=== PATIENT | male | born 1965 | race Caucasian/White ===

== ENCOUNTER 2018-12-29 18:26 | Emergency (ER) | payer BC, OTHER ==
[~2018-12-29] VITALS: Ht 190.5 cm; Wt 80.7 kg
[~2018-12-29 18:26] MED LIST: ALEVE PO; SYNTHROID137 MCG PO; ZANTAC PO
--- OUTSIDE RECORDS SUMMARY | 2018-12-29 18:30 | XMS REPORT ---
Author Author [facility] Address Unknown Phone Unavailable Care Team Providers Care Pediatric Physician Name Role Phone Unavailable Unavailable Payers Payer Name Policy Type Policy Number Effective Date Expiration Date Problems This patient has no known problems. Allergies, Adverse Reactions, Alerts Allergy Name Allergy Type Status Severity Reaction(s) Onset Date Inactive Date Treating Clinician Comments iodine DA Active U 2018-06-12 00:00:00 No Known Allergies DA Active U 2011-11-07 00:00:00 Medications This patient has no known medications. Results Test Description Test Time Test Comments Text Results Atomic Results Result Comments LIPOMA 2018-06-17 13:40:00 RUN DATE: 06/17/18 [employer] PAGE 1 RUN TIME: 1340 Specimen Inquiry RUN USER: INTERFACE PATIENT: JOAQUÍN WORRELL LOC: NEL U #: [id number] AGE/SX: 53/M ROOM: RE06/16/18REG DR: Anand Hill MD : 69 BED: DIS: STATUS: [facility] TLOC: SPEC #: [id number] RECD: 06/16/18 STATUS: [facility] #: [id number] [place]: 06/16/[address] [facility] [address]: Anand Hill MD ENTERED: 06/16/18 SP TYPE: LIPOMA OTHR DR: Escobar Burns MD ORDERED: GROSS COPIES [place]: [place] [address] [place] [address] [email or web address] Anand Hill MD [address] [place] [address] PROCEDURES: GROSS (06/17/18-114) TISSUES: INGUINAL REGION, NOS - LEFT LIPOMA CLINICAL HISTORY COLLECTION DATE: 06/16/18 LEFT INGUINAL HERNIA FINAL DIAGNOSIS Inguinal region, left lipoma, herniorrhaphy: MATURE ADIPOSE TISSUE WITH NO ATYPICAL FEATURES COMPATIBLE WITH CORD LIPOMA NEGATIVE FOR MALIGNANCY RRB/sm D 73745 MACROSCOPIC The specimen is received in formalin, labeled with the patient's name, identified as "lipoma", and consists of 3.2 x 3.0 x 1.5 cm francisco-yellow, lobulated soft tissue. Sectioning reveals francisco-yellow soft cut surface. No areas of hemorrhage or necrosis are identified. Starch Treating Assistant sections are submitted in a single cassette. CONTINUED ON NEXT PAGE RUN DATE: 06/17/18 [employer] PAGE 2 RUN TIME: 1340 Specimen Inquiry RUN USER: INTERFACE SPEC #: [id number] PATIENT: JOAQUÍN WORRELL #[id number] (Continued) MACROSCOPIC (Continued) GROSS PERFORMED AT [facility] [address] [place] [address], [place] [address] (p)[phone] MICROSCOPIC All of the stains, including any controls performed, stain appropriately. MICROSCOPIC PERFORMED AT [facility] [address] [place] [address] [phone])[phone] PERFORMING SITE Diagnosis performed at: [facility] [address] [place] [address], [place] [address] Signed SIGNATURE ON FILE Ruddy Vidal 06/17/18 1340 END OF REPORT CBC W/AUTO DIFF 2018-06-12 17:14:00 WHITE BLOOD CELL (test code=WBC) 5.0 K/mm3 4.5-12.5 RED BLOOD CELL (test code=RBC) 5.19 mill/mm3 4.0-5.8 HEMOGLOBIN (test code=HGB) 15.3 gram/dL 13.0-17.5 HEMATOCRIT (test code=HCT) 47.5 % 42.0-52.0 MEAN CELL VOLUME (test code=MCV) 91.5 fL 80-98 MEAN CELL HGB (test code=MCH) 29.5 picogram 27.0-33.0 MEAN CELL HGB CONCETRATION (test code=MCHC) 32.2 gram/dL 33.0-36.0 RED CELL DISTRIBUTION WIDTH (test code=RDW) 13.7 % 11.6-16.2 RED CELL DISTRIBUTION WIDTH SD (test code=RDW-SD) 46.5 fL 37.0-51.0 PLATELET COUNT (test code=PLT) 231 K/mm3 150-450 MEAN PLATELET VOLUME (test code=MPV) 10.9 fL 6.7-11.0 NEUTROPHIL % (test code=NT%) 45.5 % 39.0-69.0 IMMATURE GRANULOCYTE % (test code=IG%) 0.2 % 0.0-5.0 LYMPHOCYTE % (test code=LY%) 33.9 % 25.0-55.0 MONOCYTE % (test code=MO%) 12.7 % 0.0-10.0 EOSINOPHIL % (test code=EO%) 6.9 % 0.0-5.0 BASOPHIL % (test code=BA%) 0.8 % 0.0-1.0 NUCLEATED RBC % (test code=NRBC%) 0.0 % 0-0 NEUTROPHIL # (test code=NT#) 2.29 K/mm3 1.8-7.7 IMMATURE GRANULOCYTE # (test code=IG#) 0.01 x10 3/uL 0-0.03 LYMPHOCYTE # (test code=LY#) 1.71 K/mm3 1.0-5.0 MONOCYTE # (test code=MO#) 0.64 K/mm3 0-0.8 EOSINOPHIL # (test code=EO#) 0.35 K/mm3 0.0-0.5 BASOPHIL # (test code=BA#) 0.04 K/mm3 0.0-0.2 NUCLEATED RBC # (test code=NRBC#) 0.00 K/mm3 0.0-0.1 CBC W/AUTO [id number] 17:11:00* Test Item Value Reference Range Comments WHITE BLOOD CELL (test code=WBC) K/mm3 4.5-12.5 RED BLOOD CELL (test code=RBC) mill/mm3 4.0-5.8 HEMOGLOBIN (test code=HGB) 15.3 gram/dL 13.0-17.5 HEMATOCRIT (test code=HCT) 47.5 % 42.0-52.0 MEAN CELL VOLUME (test code=MCV) fL 80-98 MEAN CELL HGB (test code=MCH) picogram 27.0-33.0 MEAN CELL HGB CONCETRATION (test code=MCHC) gram/dL 33.0-36.0 RED CELL DISTRIBUTION WIDTH (test code=RDW) % 11.6-16.2 RED CELL DISTRIBUTION WIDTH SD (test code=RDW-SD) fL 37.0-51.0 PLATELET COUNT (test code=PLT) K/mm3 150-450 MEAN PLATELET VOLUME (test code=MPV) fL 6.7-11.0 NEUTROPHIL % (test code=NT%) % 39.0-69.0 IMMATURE GRANULOCYTE % (test code=IG%) % 0.0-5.0 LYMPHOCYTE % (test code=LY%) % 25.0-55.0 MONOCYTE % (test code=MO%) % 0.0-10.0 EOSINOPHIL % (test code=EO%) % 0.0-5.0 BASOPHIL % (test code=BA%) % 0.0-1.0 NEUTROPHIL # (test code=NT#) K/mm3 1.8-7.7 LYMPHOCYTE # (test code=LY#) K/mm3 1.0-5.0 MONOCYTE # (test code=MO#) K/mm3 0-0.8 EOSINOPHIL # (test code=EO#) K/mm3 0.0-0.5 BASOPHIL # (test code=BA#) K/mm3 0.0-0.2
--- OUTSIDE RECORDS SUMMARY | 2018-12-29 18:30 | XMS REPORT | Encounter Summary ---
Author Organization Unknown Address [address] [place] [address] Phone [phone] Care Team Providers Care Ingot Stripper Name Role Phone Dr. Escobar Bernstein 3 [phone] Everett Roberts MD 107 [phone] Reason for Visit Annual physical - male with PSA; hernia Instructions 1. Adult health examination CBC w/ auto diff CMP, serum or plasma TSH, serum or plasma lipid panel, serum urinalysis, dipstick 2. Immunization Fluzone Quad 2017-(PF) 60 mcg(15 mcgx4)/0.5 mL intramuscular syringe 3. Body mass index 20-24 - normal 4. Cigarette smoker stopping smoking: care instructions 5. Screening for malignant neoplasm of prostate PSA, serum or plasma 6. Loose stool C diff toxin B, stool ova + parasites, unspecified specimen 7. Abdominal mass CT, abdomen + pelvis, w/ contrast - please schedule & contact our patient. thank you 8. Alopecia dermatology referral 9. Chronic obstructive lung disease Discussion Note: None recorded. Plan of Care Reminders Provider Appointments None recorded. Lab CBC W/ Auto Diff 05/12/2018 [facility] CMP, Serum or Plasma 05/12/2018 [facility] TSH, Serum or Plasma 05/12/2018 [facility] Lipid Panel, Serum 05/12/2018 [facility] Urinalysis, Dipstick 05/12/2018 [facility] [place] PSA, Serum or Plasma 05/12/2018 [facility] C Diff Toxin B, Stool 05/12/2018 [facility] Ova + Parasites, Unspecified Specimen 05/12/2018 [facility] Referral Dermatology Referral 05/12/2018 Rossana Edward MD Procedures None recorded. Surgeries None recorded. Imaging CT, Abdomen + Pelvis, W/ Contrast 05/12/2018 [facility] Medications Name Start Date Aleve 2 TABS A COUPLE TIMES A WEEK PRN 08/08/2017 fluticasone 50 mcg/actuation nasal spray,suspension [place] 1 spray twice a day by intranasal route as directed for 10 days. Synthroid 200 mcg tablet TAKE 1 TABLET BY MOUTH ONCE DAILY Medications Administered None recorded. Vitals Height Weight BMI Blood Pressure 6 ft 3 in 189.8 lbs 23.7 kg/m2 118/72 mm[Hg] Lab Results None recorded. Allergies Code Code System Name Reaction Severity Status Onset 5933 RxNorm Iodine Active NKDA Problems Name Status Onset Date Source Hypothyroidism Active 07/10/2016 Body Mass Index 25-29 - Overweight Active 07/10/2016 Tobacco User Active 07/10/2016 Constipation Active 07/10/2016 Disorder of Hair AND/OR Hair Follicle Active 07/10/2016 Loss of Appetite Active 07/10/2016 Elevated Blood-pressure Reading without Diagnosis of Hypertension Active 07/10/2016 Internal Hemorrhoids Active 08/23/2016 Procedures Date Name Performed by 08/15/2016 Colonoscopy Information not available 04/14/2014 Hernia Repair Information not available 05/03/2011 Egd Information not available 03/01/2010 Colonoscopy Information not available Tonsillectomy Information not available Knee Surgery Information not available 05/12/2018 CT, Abdomen + Pelvis, W/ Contrast [facility] [place] [address] [place] [address] (Work Place) Vaccine List Vaccine Type influenza, injectable, quadrivalent, preservative free 05/12/20180.5 mL Tdap 08/21/20160.5 mL Social History Smoking Status Heavy Tobacco Smoker (2 PPD) Past Encounters 05/12/2018 Adult Health Examination; Immunization; Body Mass Index 20-24 - Normal; Cigarette Smoker; Screening for Malignant Neoplasm of Prostate; Loose Stool; Abdominal Mass; Alopecia; Chronic Obstructive Lung Disease Escobar Huddleston MD: [address] [place] [address], Ph. History of Present Illness Note:Coming for a physical exam. He is also complaining of loose and watery stools since 2 weeks ago. Denies abdominal pain or vomiting. Review of Systems Comprehensive General Adult ROS Reported By: Patient Constitutional: Constitutional: no fever, no night sweats, no significant weight gain, no significant weight loss, no exercise intolerance Eyes: Eyes: no dry eyes, no vision change, no irritation ENMT: Ears: no difficulty hearing, no ear pain. Nose: no frequent nosebleeds, no nose problems, no sinus problems. Mouth/Throat: no sore throat, no bleeding gums, no snoring, no dry mouth, no mouth ulcers, no oral abnormalities, no teeth problems Cardiovascular: Cardiovascular: no chest pain, no arm pain on exertion, no shortness of breath when walking, no shortness of breath when lying down, no palpitations, no known heart murmur, no lightheadedness Respiratory: Respiratory: no cough, no wheezing, no shortness of breath, no coughing up blood, no sleep apnea Gastrointestinal: Gastrointestinal: no abdominal pain, no nausea, no vomiting, no constipation, normal appetite, not vomiting blood, no dyspepsia, no GERD Genitourinary: Genitourinary: no incontinence, no difficulty urinating, no hematuria, no increased frequency Musculoskeletal: Musculoskeletal: no muscle aches, no muscle weakness, no arthralgias/joint pain, no back pain, no swelling in the extremities Integumentary: Skin: no abnormal mole, no jaundice, no rashes, no laceration Neurologic: Neurologic: no loss of consciousness, no weakness, no numbness, no seizures, no dizziness, no migraines, no headaches, no tremor Psychiatric: Psych: no depression, no sleep disturbances, feeling safe in a relationship, no alcohol abuse, no anxiety, no hallucinations, no suicidal thoughts Endocrine: Endocrine: no fatigue Hematologic/Lymphatic: Hematologic/Lymphatic no swollen glands, no bruising, no excessive bleeding Allergic/Immunologic: Allergy/Immunologic: no runny nose, no sinus pressure, no itching, no hives, no frequent sneezing Physical Exam General Adult Exam (male) Reported By: Patient Constitutional: General Appearance: healthy-appearing. Level of Distress: NAD. Ambulation: ambulating normally Psychiatric: Insight: good judgement. Mental Status: active and alert, normal mood, normal affect. Orientation: to time, to place, to person. Memory: recent memory normal, remote memory normal Head: Head: normocephalic, atraumatic Eyes: Lids and Conjunctivae: non-injected, no discharge. EOM: EOMI ENMT: Ears: TMs clear. Nose: no sinus tenderness. Lips, Teeth, and Gums: no mouth or lip ulcers. Oropharynx: moist mucous membranes Neck: Neck: supple, trachea midline. Thyroid: no enlargement, non-tender Lungs: Auscultation: breath sounds normal Cardiovascular: Heart Auscultation: RRR, normal S1, normal S2, no murmurs. Neck vessels: no carotid bruits. Pulses including femoral / pedal: normal throughout Abdomen: Inspection and Palpation: soft, non-distended, no tenderness, no guarding. Hernia: inguinal Male : Penis: no lesions, no discharge. Scrotum: no swelling, no tenderness. Testes: palpable bilaterally, not enlarged Musculoskeletal:: Motor Strength and Tone: normal, normal tone. Joints, Bones, and Muscles: normal movement of all extremities, no contractures, no bony abnormalities, no malalignment, no tenderness Neurologic: Gait and Station: normal gait. Cranial Nerves: grossly intact. Sensation: grossly intact. Reflexes: DTRs 2+ bilaterally throughout. Coordination and Cerebellum: [id number] intact, no tremor Skin: Inspection and palpation: no rash, no lesions Back: Thoracolumbar Appearance: normal curvature
--- OUTSIDE RECORDS SUMMARY | 2018-12-29 18:31 | XMS REPORT | Encounter Summary ---
Author Organization Unknown Address [address] [place] [address] Phone [phone] Care Team Providers Care Decorating Machine Tender Name Role Phone Dr. Escobar Bernstein 3 [phone] Everett Roberts MD 107 [phone] Blaise Anna MD 115 [phone] Reason for Visit lab follow-up Instructions 1. Hypothyroidism Synthroid 50 mcg tablet Synthroid 200 mcg tablet 2. Leukopenia Discussion Note: None recorded. Patient educational handouts: No information available. Plan of Care Reminders Provider Appointments Return to Office on or around 11/25/2018 Escobar Huddleston MD Lab None recorded. Referral None recorded. Procedures None recorded. Surgeries None recorded. Imaging None recorded. Medications Name Start Date Aleve 2 TABS A COUPLE TIMES A WEEK PRN 08/08/2017 fluticasone propionate 50 mcg/actuation nasal spray,suspension [place] 1 spray twice a day by intranasal route as directed for 10 days. levothyroxine 300 mcg tablet Take 1 tablet every day by oral route as directed for 30 days. Synthroid 200 mcg tablet TAKE 1 TABLET BY MOUTH ONCE DAILY Synthroid 50 mcg tablet Take 1 tablet every day by oral route as directed for 90 days. Medications Administered None recorded. Vitals Height Weight BMI Blood Pressure 6 ft 3 in 179 lbs 22.4 kg/m2 116/64 mm[Hg] Lab Results Date Name Specimen Result Interpretation Description Value Range Status Address 08/20/2018 CBC W/ Auto Diff Low Wbc 4.09 x10*3/L 4.23-9.07 x10*3/L [facility]: [address] Rbc 5.69 10*12/L 4.63-6.08 10*12/L [facility]: [address] Hemoglobin 16.90 g/dL 13.70-17.50 g/dL [facility]: [address] [place] Hematocrit 50.7 % 40.1-51.0 % Final [facility]: [address] [place] Mcv 89.1 fL 80.0-100.0 fL Final [facility]: [address] [place] Mch 29.7 pg 25.7-32.2 pg Final [facility]: [address] [place] Mchc 33.3 g/dL 32.3-36.5 g/dL Final [facility]: [address] [place] High RDW-SD 45.0 fL 35.1-43.9 fL Final [facility]: [address] [place] Platelet Count 238.0 k/uL 163.0-337.0 k/uL Final [facility]: [address] [facility] Mpv 12.4 fL 7.5-11.5 fL Final [facility]: [address] [place] Neut% 41.8 % 34.0-67.9 % Final [facility]: [address] [place] Lymph% 35.2 % 21.8-53.1 % Final [facility]: [address] [place] Mon% 12.2 % 5.3-12.2 % Final [facility]: [address] [place] High Eos% 9.8 % 0.8-7.0 % Final [facility]: [address] ArellanoCount Includes [facility] Baso% 1.0 % 0.2-1.2 % Final [facility]: [address] [place] Low Neut# 1.7 x10*3/L 1.8-5.4 x10*3/L Final [facility]: [address] [place] Lymph# 1.4 x10*3/L 1.3-3.6 x10*3/L Final [facility]: [address] ArellanoCount Includes [facility] Mon# 0.5 x10*3/L 0.3-0.8 x10*3/L Final [facility]: [address] [place] Eos# 0.40 x10*3/L 0.04-0.54 x10*3/L Final [facility]: [address] [place] Baso# 0.04 x10*3/L 0.01-0.08 x10*3/L Final [facility]: [address] [place] 08/20/2018 CMP, Serum or Plasma Alt 41 U/L 0-55 U/L Final [facility]: [address] [place] High Ast 35 U/L 5-34 U/L Final [facility]: [address] Bun 19.9 mg/dL 8.4-25.0 mg/dL Final [facility]: [address] Alk Phos 95 unit/L 40-150 unit/L Final [facility]: [address] Glucose 95 mg/dL 70-99 mg/dL Final [facility]: [address] Albumin 3.7 g/dL 3.4-5.1 g/dL Final [facility]: [address] Creatinine 0.85 mg/dL 0.72-1.25 mg/dL Final [facility]: [address] eGFR Non- >60 mL/min/1.73m2 Final [facility]: [address] Total Bilirubin 0.5 mg/dL 0.2-1.2 mg/dL Final [facility]: [address] eGFR - >60 mL/min/1.73m2 Final [facility]: [address] Sodium 142 mEq/L 135-145 mEq/L Final [facility]: [address] Potassium 4.5 mEq/L 3.5-5.1 mEq/L Final [facility]: [address] Chloride 109 mmol/L 98-110 mmol/L Final [facility]: [address] Low Total Protein 6.0 g/dL 6.1-8.2 g/dL Final [facility]: [address] Calcium 9.6 mg/dL 8.6-10.4 mg/dL Final [facility]: [address] Co2 26.3 mmol/L 20.0-32.0 mmol/L Final [facility]: [address] Anion Gap 7 calc Final [facility]: [address] [place] [address], [place] 08/20/2018 Lipid Panel, Serum Low Hdl 29 mg/dL >40 mg/dL Final [facility]: [address] Triglyceride 71 mg/dL <150 mg/dL Final [facility]: [address] VLDL Calc. 14 mg/dL Final [facility]: [address] cholesterol/HDL Ratio 5.2 mg/dL Final [facility]: [address] non-HDL Cholesterol Calc. 122 mg/dL <160 mg/dL Final [facility]: [address] Cholesterol 151 mg/dL <200 mg/dL Final [facility]: [address] LDL Calc. 108 mg/dL <130 mg/dL Final [facility]: [address] [place] [address], [place] 08/20/2018 TSH, Serum or Plasma Low Tsh 0.014 uIU/mL 0.350-4.940 uIU/mL Final [facility]: [address] Allergies Code Code System Name Reaction Severity Status Onset 5933 RxNorm Iodine Active Problems Name Status Onset Date Source Hypothyroidism [...] not available Knee Surgery Information not available Vaccine List Vaccine Type influenza, injectable, quadrivalent, preservative free 05/12/20180.5 mL Tdap 08/21/20160.5 mL Social History Smoking Status Heavy Tobacco Smoker (2 PPD) Past Encounters 08/25/2018 Hypothyroidism; Leukopenia Escobar Huddleston MD: [address] [place] [address], Ph. 08/20/2018 Hypothyroidism; Adult Health Examination Escobar Huddleston MD: [address] [place] [address], Ph. History of Present Illness Note:Coming to discuss lab results. No new concerns. Review of Systems Comprehensive General Adult ROS Reported By: Patient Constitutional: Constitutional: no fever Eyes: Eyes: no vision change Cardiovascular: Cardiovascular: no chest pain, no palpitations, no lightheadedness Respiratory: Respiratory: no cough, no wheezing, no shortness of breath Gastrointestinal: Gastrointestinal: no abdominal pain, no nausea, no vomiting, no constipation, no diarrhea Musculoskeletal: Musculoskeletal: no muscle aches, no swelling in the extremities Neurologic: Neurologic: no loss of consciousness, no headaches Psychiatric: Psych: no depression, no alcohol abuse, no anxiety, no suicidal thoughts Physical Exam General Adult Exam (male) Reported By: Patient Constitutional: General Appearance: healthy-appearing. Level of Distress: NAD Psychiatric: Insight: good judgement. Mental Status: active and alert, normal mood, normal affect. Orientation: to time, to place, to person. Memory: recent memory normal, remote memory normal Eyes: Lids and Conjunctivae: non-injected, no discharge ENMT: Oropharynx: moist mucous membranes Neck: Neck: supple, trachea midline. Thyroid: no enlargement, non-tender, no nodules Lungs: Auscultation: breath sounds normal Cardiovascular: Heart Auscultation: RRR, normal S1, normal S2, no murmurs. Neck vessels: no carotid bruits Neurologic: Gait and Station: normal gait. Cranial Nerves: grossly intact
--- OUTSIDE RECORDS SUMMARY | 2018-12-29 18:31 | XMS REPORT | Encounter Summary ---
Author Organization Unknown Address [address] [place] [address] Phone [phone] Care Team Providers Care Tiger Machine Operator Name Role Phone Dr. Escobar Bernstein 3 [phone] Everett Roberts MD 107 [phone] Reason for Visit lab only visit Instructions 1. Hypothyroidism TSH, serum or plasma 2. Adult health examination CMP, serum or plasma lipid panel, serum CBC w/ auto diff Discussion Note: None recorded. Patient educational handouts: No information available. Plan of Care Reminders Provider Appointments Est Patient 08/21/2018 4:00PM Escobar Huddleston MD Lab TSH, Serum or Plasma 08/20/2018 [facility] CMP, Serum or Plasma 08/20/2018 [facility] Lipid Panel, Serum 08/20/2018 [facility] CBC W/ Auto Diff 08/20/2018 [facility] Referral None recorded. Procedures None recorded. Surgeries None recorded. Imaging None recorded. Medications Name Start Date Aleve 2 TABS A COUPLE TIMES A WEEK PRN 08/08/2017 fluticasone propionate 50 mcg/actuation nasal spray,suspension [place] 1 spray twice a day by intranasal route as directed for 10 days. levothyroxine 300 mcg tablet Take 1 tablet every day by oral route as directed for 30 days. Synthroid 200 mcg tablet TAKE 1 TABLET BY MOUTH ONCE DAILY Medications Administered None recorded. Vitals None recorded. Lab Results None recorded. Allergies Code Code [...] Heavy Tobacco Smoker (2 PPD) Past Encounters 08/20/2018 Hypothyroidism; Adult Health Examination Escobarconsuelo Huddleston MD: [address] [place] [address], Ph. History of Present Illness None recorded. Review of Systems None recorded. Physical Exam None recorded.
--- OUTSIDE RECORDS SUMMARY | 2018-12-29 18:31 | XMS REPORT | Encounter Summary ---
Author Organization Unknown Address [address] [place] [id number] Phone [phone] Care Team Providers Care [employer] Name Role Phone Dr. Escobar Bernstein 3 [phone] Everett Roberts MD 107 [phone] Blaise Anna MD 115 [phone] Reason for Visit other - see typed reason Instructions 1. Acute laryngitis Kenalog 40 mg/mL suspension for injection Zithromax Z-Javier 250 mg tablet 2. Hypothyroidism TSH, serum or plasma 3. Body mass index 20-24 - normal Discussion Note: None recorded. Patient educational handouts: No information available. Plan of Care Reminders Provider Appointments Return to Office on or around 11/25/2018 Escobar Huddleston MD Lab TSH, Serum or Plasma 11/09/2018 [facility] Laboratory Referral None recorded. Procedures None recorded. Surgeries None recorded. Imaging None recorded. Medications Name Start Date Aleve 220 mg tablet Take 1 tablet every day by oral route. fluticasone propionate 50 mcg/actuation nasal spray,suspension [place] 1 spray twice a day by intranasal route as directed for 10 days. Kenalog 40 mg/mL suspension for injection Take 40 mg by injection route. Synthroid 200 mcg tablet TAKE 1 TABLET BY MOUTH ONCE DAILY Zantac 150 mg tablet Take 1 tablet every day by oral route. Zithromax Z-Javier 250 mg tablet TAKE 2 TABLETS (500 MG) BY ORAL ROUTE ONCE DAILY FOR 1 DAY THEN 1 TABLET (250 MG) BY ORAL ROUTE ONCE DAILY FOR 4 DAYS Medications Administered Name Date Kenalog 40 mg/mL suspension for injection Take 40 mg by injection route. [id number]:00 Vitals Height Weight BMI Blood Pressure 6 ft 3 in 179.8 lbs 22.5 kg/m2 104/66 mm[Hg] Lab Results None recorded. Allergies Code [...] Active 08/23/2016 Procedures Date Name Performed by 04/14/2014 Hernia Repair Information not available 05/03/2011 Egd Information not available Colonoscopy Information not available Colonoscopy Information not available Tonsillectomy Information not available Knee Surgery Information not available Vaccine List Vaccine Type influenza, injectable, quadrivalent, preservative free 05/12/20180.5 mL Tdap 08/21/20160.5 mL Social History Tobacco Smoking Status Heavy Tobacco Smoker (2 PPD) Past Encounters 11/09/2018 Acute Laryngitis; Hypothyroidism; Body Mass Index 20-24 - Normal Escobar Huddleston MD: [id number] [place] [address], Ph. History of Present Illness Note:Hoarseness since 2 weeks ago. Concomitantly, postnasal drainage, sore throat and dry cough. Denies ear pain, fever, sob, wheezing or chest pain. Review of Systems:ROS as noted in the HPI Review of Systems None recorded. Physical Exam General Adult Exam (male) Reported By: Patient Constitutional: General Appearance: healthy-appearing. Level of Distress: NAD Eyes: Lids and Conjunctivae: non-injected, no discharge. EOM: EOMI ENMT: Ears: TMs clear. Nose: no sinus tenderness, nares non-patent, nasal discharge, post nasal drip. Lips, Teeth, and Gums: no mouth or lip ulcers. Oropharynx: moist mucous membranes, no exudates, erythema, tonsils absent Neck: Neck: supple, trachea midline. Lymph Nodes: cervical LAD Lungs: Auscultation: breath sounds normal Cardiovascular: Heart Auscultation: RRR, normal S1, normal S2, no murmurs. Pulses including femoral / pedal: normal throughout Neurologic: Gait and Station: normal gait
[2018-12-29] MEDS ORDERED: KETOROLAC TROMETHAMINE 30 MG/ML VIAL IV STA (19:04)
[2018-12-29] MEDS ORDERED: KETOROLAC TROMETHAMINE 30 MG/ML VIAL ONE (19:31)
--- NOTE | 2018-12-29 20:01 | Diagnostic Imaging Report ---
EXAMINATION: CXR 2 VIEW - HOPD INDICATION: Pain with breathing. COMPARISON: None FINDINGS: TUBES and LINES: None. LUNGS: Lungs are well inflated. Lungs are clear. There is no evidence of pneumonia or pulmonary edema. PLEURA: No pleural effusion or pneumothorax. HEART AND MEDIASTINUM: The cardiomediastinal silhouette is unremarkable. BONES AND SOFT TISSUES: No acute osseous lesion. Soft tissues are unremarkable. UPPER ABDOMEN: No free air under the diaphragm. IMPRESSION: No acute thoracic abnormality. Signed by: Dr. Trevor Wilcox M.D. on 12/29/2018 7:58 PM
--- NOTE | 2018-12-29 20:22 | Diagnostic Imaging Report ---
EXAM: CT Abdomen and Pelvis WITHOUT contrast INDICATION: Abdominal pain. Vomiting. COMPARISON: None. TECHNIQUE: Abdomen and pelvis were scanned utilizing a multidetector helical scanner from the lung base to the pubic symphysis without administration of IV contrast. Absence of intravenous contrast decreases sensitivity for detection of focal lesions and vascular pathology. Coronal and sagittal reformations were obtained. Routine protocol was performed. IV CONTRAST: None ORAL CONTRAST: Water COMPLICATIONS: None RADIATION DOSE: Total DLP: 754 mGy*cm Estimated effective dose: (DLP x 0.015 x size factor) mSv CTDIvol has been reviewed. It is below the limits set by the Radiation Protocol Committee (RPC). Dose modulation, iterative reconstruction, and/or weight based adjustment of the mA/kV was utilized to reduce the radiation dose to as low as reasonably achievable. FINDINGS: LINES and TUBES: None. LOWER THORAX: Nonspecific 4 mm nodular density in the lingula HEPATOBILIARY: No focal hepatic lesions. No biliary ductal dilation. GALLBLADDER: No radio-opaque stones or sludge. No wall thickening. SPLEEN: No splenomegaly. PANCREAS: No focal masses or ductal dilatation. Fatty atrophy of the pancreas. ADRENALS: No adrenal nodules KIDNEYS/URETERS: No hydronephrosis. No cystic or solid mass lesions. Punctate nonobstructing left renal stones. GI TRACT: No abnormal distention, wall thickening, or evidence of bowel obstruction. Scattered diverticulosis without evidence of diverticulitis. The appendix is not clearly seen however, no inflammatory changes are seen in the right lower quadrant of the abdomen. PELVIC ORGANS/BLADDER: Unremarkable. LYMPH NODES: No lymphadenopathy. VESSELS: Unremarkable. PERITONEUM / RETROPERITONEUM: No free air or fluid. BONES: Unremarkable. SOFT TISSUES: Unremarkable. IMPRESSION: 1. Scattered diverticulosis without evidence of diverticulitis. The appendix is not clearly seen however, no inflammatory changes are seen in the right lower quadrant of the abdomen. 2. Punctate nonobstructing left renal stones. 3. Fatty atrophy of the pancreas. 4. Nonspecific 4 mm nodular density in the lingula Signed by: Dr. Trevor Wilcox M.D. on 12/29/2018 8:18 PM
== END 2018-12-29 21:00 | disposition home or self-care (01) ==
LOC: FSED 18:26
DX: R09.1 Pleurisy (principal); R05 Cough; R10.13 Epigastric pain; E03.9 Hypothyroidism, unspecified
CPT/HCPCS: 71046; 74176; 80048; 80076; 81003; 82553; 84484; 85025; 85379; 93005; 99284; J1885